=== PATIENT | female | born 1995 | race Caucasian/White ===

== ENCOUNTER 2017-06-30 22:57 | Emergency (ER) | payer SELFPAY ==
[~2017-06-30] VITALS: Ht 165.1 cm; Wt 65.7 kg
[2017-06-30 23:03] VITALS: BP 128/66; PULSE 113; RESP 16; TEMP 98; O2SAT 100
--- NOTE | 2017-06-30 23:44 | PD ---
HPI Chief Complaint: It Portfolio Manager Problem/Complaint Time Seen by Provider: 23:31 Travel History International Travel<30 days: No Contact w/Intl Traveler<30days: No Traveled to known affect area: No History of Present Illness HPI The patient is a 22-year-old female, G2, P0, A1 which was a tubal whose last menstrual period she believes was 09 June. She was checked in [place] where she lives 4-5 days ago and an ultrasound revealed the was too early to tell anything. She states she is nervous and wants to be checked again. She apparently has never gotten RhoGAM. She denies any cramping. PFSH Past Medical History Anxiety: Yes Genitourinary: Yes (UTI'S, KIDNEY INFECTIONS) Medical other: Yes (STREP THROAT) Tetanus Vaccination: Unknown Influenza Vaccination: No ?: LMP: "NOT SURE, IRREGULAR PERIODS" STATED 06/30/17 : 3 Miscarriage: 2 Ectopic : Yes (X1, AGE 17) Past Surgical History Gynecologic Surgery: Yes (EXP LAP: AGE 17: RIGHT SALPINGECTOMY R/T TUBAL ) Other Surgery: Yes ("CYST ON TONGUE REMOVED SEVERAL TIMES" VIA LASER) Social History Alcohol Use: No Tobacco Use: No Substance Use: No Allergies-Medications (Allergen,Severity, Reaction): Coded Allergies: Penicillins (Verified Allergy, Severe, 06/30/17) "MAKES ME FREAK OUT, WEIRD RASH, FACE PUFFINESS ibuprofen (Verified Allergy, Severe, Swelling, 06/30/17) Sulfa (Sulfonamide Antibiotics) (Verified Allergy, Unknown, Swelling, ) "SAME PENICILLIN" Reported Meds & Prescriptions Reported Meds & Active Scripts Active No Active Prescriptions or Reported Medications Review of Systems Except as stated in HPI: all other systems reviewed are Neg Physical Exam Narrative GENERAL: The patient is alert, oriented 3 in no apparent distress. Her heart rate is 113 but the rest of her vital signs are normal. SKIN: Focused skin assessment warm/dry. HEAD: Atraumatic. Normocephalic. EYES: Pupils equal and round. No scleral icterus. No injection or drainage. ENT: No nasal bleeding or discharge. Mucous membranes pink and moist. NECK: Trachea midline. No JVD. CARDIOVASCULAR: Regular rate and rhythm. No murmur appreciated. RESPIRATORY: No accessory muscle use. Clear to auscultation. Breath sounds equal bilaterally. GASTROINTESTINAL: Abdomen soft, non-tender, nondistended. Hepatic and splenic margins not palpable. No guarding or rebound is present. MUSCULOSKELETAL: No obvious deformities. No clubbing. No cyanosis. No edema. NEUROLOGICAL: Awake and alert. No obvious cranial nerve deficits. Motor grossly within normal limits. Normal speech. PSYCHIATRIC: Appropriate mood and affect; insight and judgment normal. GENITOURINARY: Normal external genitalia without lesions or erythema. Vaginal vault without blood but there is a pure white drainage. Cervical os was closed without drainage. There is considerable cervical ectopy present No cervical motion tenderness. Uterus nontender and nonenlarged. Bilateral adnexa nontender without masses. Data Data Last Documented VS Vital Signs Date Time Temp Pulse Resp B/P (MAP) Pulse Ox O2 Delivery O2 Flow Rate FiO2 07/01/17 01:19 92 16 130/62 (84) 98 Room Air 06/30/17 23:03 98.0 Orders Orders Beta Hcg (Quant/Titer) (06/30/17 23:31) Complete Blood Count With Diff (06/30/17 23:31) Basic Metabolic Panel (Bmp) (06/30/17 23:31) Complete Rh (06/30/17 23:31) Urinalysis - C+S If Indicated (06/30/17 23:31) Sodium Chloride 0.9% Flush (Ns Flush) (06/30/17 23:45) Us Pelvis (Ques Pr/Ect)W Trans (07/01/17 ) Labs Laboratory Tests Test 06/30/17 23:20 06/30/17 23:45 Urine Color STRAW Urine Turbidity CLEAR Urine pH 5.5 Urine Specific [place] 1.007 Urine Protein NEG mg/dL Urine Glucose (UA) NEG mg/dL Urine Ketones NEG mg/dL Urine Occult Blood LARGE Urine Nitrite NEG Urine Bilirubin NEG Urine Leukocyte Esterase NEG Urine RBC 4-9 /hpf Urine Squamous Epithelial Cells 0-5 /hpf Urine Bacteria RARE /hpf Microscopic Urinalysis Comment CULT NOT INDICATED White Blood Count 8.6 TH/MM3 Red Blood Count 4.17 MIL/MM3 Hemoglobin 11.3 GM/DL Hematocrit 34.5 % Mean Corpuscular Volume 82.6 FL Mean Corpuscular Hemoglobin 27.2 PG Mean Corpuscular Hemoglobin Concent 32.9 % Red Cell Distribution Width 14.6 % Platelet Count 326 TH/MM3 Mean Platelet Volume 8.6 FL Neutrophils (%) (Auto) 56.8 % Lymphocytes (%) (Auto) 34.6 % Monocytes (%) (Auto) 6.3 % Eosinophils (%) (Auto) 1.0 % Basophils (%) (Auto) 1.3 % Neutrophils # (Auto) 4.9 TH/MM3 Lymphocytes # (Auto) 3.0 TH/MM3 Monocytes # (Auto) 0.5 TH/MM3 Eosinophils # (Auto) 0.1 TH/MM3 Basophils # (Auto) 0.1 TH/MM3 CBC Comment DIFF FINAL Differential Comment Blood Urea Nitrogen 11 MG/DL Creatinine 0.79 MG/DL Random Glucose 85 MG/DL Calcium Level 8.7 MG/DL Sodium Level 137 MEQ/L Potassium Level 3.6 MEQ/L Chloride Level 106 MEQ/L Carbon Dioxide Level 21.8 MEQ/L Anion Gap 9 MEQ/L Estimat Glomerular Filtration Rate 92 ML/MIN Human Chorionic Gonadotropin, Quant 4669 MIU/ML MDM Medical Decision Making Medical Screen Exam Complete: Yes Emergency Medical Condition: Yes Medical Record Reviewed: Yes Interpretation(s) The CBC is normal except for hemoglobin of 11.3 and hematocrit of 34.5. The basic metabolic profile is normal. The beta-hCG is 4669. The urinalysis shows large occult blood with 4-9 red cells but is otherwise normal and culture is not indicated. The ultrasound of the pelvis shows intrauterine gestational sac which is too early to date and without a visible yolk sac or pole. There is suspected a small subchorionic hemorrhage. There is a probable left ovarian corpus luteal cyst with no ectopic present. Differential Diagnosis Threatened AB, bleeding from cervical ectopy, ectopic -unlikely, Rh- status Narrative Course The patient appears to have an intrauterine which is either a threatened AB or simply uterine ectopy bleeding. Also, there is small subchorionic hemorrhage noted and this may be the cause of her minimal bleeding. Diagnosis Primary Impression: Intrauterine Additional Impression: Threatened in first trimester Additional Instructions: As we discussed, take your vitamins which she can buy at the grocery store or drugstore, avoid alcohol, cigarettes or recreational drugs. Follow-up as soon as possible with your supervisor fleshing in [place]. Med/Other Pt SpecificInfo: No Change to Meds Scripts No Active Prescriptions or Reported Meds Disposition: DISCHARGE HOME Condition: Stable Sonny Naqvi MD Jun 30, 2017 23:44
[2017-06-30] MEDS ORDERED: SODIUM CHLORIDE 0.9% FLUSH 10 ML FLUSH IVF PRN (23:45)
[2017-07-01 00:01] LABS: BLOOD, URINE LARGE (NEG); GLUCOSE,URINE NEG (NEG); KETONE, URINE NEG (NEG); NITRITE,URINE NEG (NEG); PH, URINE 5.5 (5.0-8.5)
[2017-07-01 00:11] LABS: URINE COLOR STRAW (YELLW/STRAW)
[2017-07-01 00:12] LABS: BACTERIA, URINE RARE /hpf; SQUAMOUS EPITHELIAL CELL URINE 0-5 /hpf (0-5)
[2017-07-01 00:12] LABS: AUTOMATED NEUTROPHIL # 4.9 TH/MM3 (1.8-7.7); BASOPHIL # 0.1 TH/MM3 (0-0.2); BASOPHIL % 1.3 % (0.0-2.0); EOSINOPHIL # 0.1 TH/MM3 (0-0.4); HEMATOCRIT 34.5 % (35.0-46.0); HEMO FLAGS DIFF FINAL; LYMPH % 34.6 % (9.0-44.0); MEAN CELL VOLUME 82.6 FL (80.0-100.0); MEAN CORPUSCULAR HEMOGLOBIN 27.2 PG (27.0-34.0); MEAN CORPUSCULAR HGB CONC 32.9 % (32.0-36.0); MONO % 6.3 % (0.0-8.0); NEUT % 56.8 % (16.0-70.0); PLATELET COUNT 326 TH/MM3 (150-450); RED BLOOD COUNT 4.17 MIL/MM3 (4.00-5.30); RED CELL DISTRIBUTION WIDTH 14.6 % (11.6-17.2); WHITE BLOOD COUNT 8.6 TH/MM3 (4.0-11.0)
[2017-07-01 00:14] LABS: POTASSIUM 3.6 MEQ/L (3.5-5.1)
[2017-07-01 00:14] LABS: COMMENT (UR) CULT NOT INDICATED; CULTURE IF INDICATED CULT NOT INDICATED
[2017-07-01 00:17] LABS: BICARBONATE 21.8 MEQ/L (21.0-32.0)
[2017-07-01 01:19] VITALS: BP 130/62; PULSE 92; RESP 16; O2SAT 98
--- NOTE | 2017-07-01 02:57 | RADRPT ---
EXAM DATE/TIME: 07/01/2017 02:14 [facility] COMPARISON: No previous studies available for comparison. INDICATIONS : Bleeding with . LAB(S): Beta-hC MEDICAL HISTORY : . Ectopic. Anxiety. SURGICAL HISTORY : Right salpingectomy. ENCOUNTER: Initial ACUITY: 1 day PAIN SCORE: 0/10 LOCATION: Bilateral pelvis MEASUREMENTS: UTERUS: 9.7 x 5.9 x 6.4 cm ENDOMETRIAL STRIPE: 17 mm RIGHT OVARY: 3.7 x 2.6 x 1.8 cm LEFT OVARY: 2.8 x 2.4 x 2.2 cm FREE FLUID: Yes Mild in posterior cul de sac. CROWN RUMP LENGTH: Non visualized. = WKS DAYS FHR: Non visualized. BPM FINDINGS: There is an intrauterine gestational sac that measures approximately 6 x 5 x 5 mm in size, too early to date. No perceptible yolk sac or pole at this time. There is mildly echogenic debris in the adjacent uterine cavity suggesting small amount of subchorionic hemorrhage. It is not significantly o rganized. The right ovary is normal. 2 cm area of slightly decreased echogenicity of the left ovary without abn ormal vascularity, likely a corpus luteal cyst. Small free fluid is seen in the pelvic cul-de-sac. CONCLUSION: 1. Intrauterine gestational sac, too early to date and without a visible yolk sac or pole. Susp ected small subchorionic hemorrhage. 2. Probable left ovarian corpus luteal cyst. No ectopic seen. 3. Small and fairly simple appearing free fluid. Jerardo Hooper MD on July 01, 2017 at 2:52 Board Certified Radiologist. This report was verified electronically.
[2017-07-01 03:10] VITALS: BP 118/77
== END 2017-07-01 03:15 | disposition home or self-care (01) ==
LOC: PHED 22:57
DX: O20.0 Threatened abortion (principal); Z3A.00 Weeks of gestation of pregnancy not specified
CPT/HCPCS: 76700; 76817; 80048; 81001; 84702; 85025; 86901; 99284